=== PATIENT | male | born 1985 | race Caucasian/White ===

== ENCOUNTER 2022-01-11 14:35 | Emergency (ER) | payer SELFPAY ==
[~2022-01-11] VITALS: Ht 180.3 cm; Wt 111.4 kg
[2022-01-11 15:02] VITALS: TEMP 98.1
[2022-01-11] MEDS ORDERED: NORCO 325 MG-51 TAB PO (16:33)
[2022-01-11 16:49] VITALS: BP 128/79; PULSE 63
== END 2022-01-11 16:50 | disposition home or self-care (01) ==
LOC: COL.ER 14:35
DX: S09.90XA Unspecified injury of head, initial encounter (principal); S02.85XA Fracture of orbit, unspecified, initial encounter for closed fracture; Z28.310 Unvaccinated for COVID-19; W20.8XXA Other cause of strike by thrown, projected or falling object, initial encounter; Y92.59 Other trade areas as the place of occurrence of the external cause; Y99.0 Civilian activity done for income or pay